=== PATIENT | female | born 1995 | race African-American/Black ===

== ENCOUNTER 2017-10-25 10:45 | Emergency (ER) | payer OTHER ==
[2017-10-25 11:05] VITALS: BP 132/89
[2017-10-25] MEDS ORDERED: Ketorolac INJ* 60 MG/2 ML VIAL IM ONE (11:18)
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
== END 2017-10-25 12:18 | disposition home or self-care (01) ==
LOC: UCCORT 10:45
DX: R20.2 Paresthesia of skin (principal); T14.90XS Injury, unspecified, sequela; V99.XXXS Unspecified transport accident, sequela; Z88.0 Allergy status to penicillin; Z88.1 Allergy status to other antibiotic agents
CPT/HCPCS: 96372; 99202; G0463; J1885